=== PATIENT | female | born 1980 | race Caucasian/White ===

== ENCOUNTER → 2018-03-06 | Outpatient (CLI) | payer BC ==
--- NOTE | 2018-03-06 15:04 | CT ---
EXAM DESCRIPTION: Abdomen/Pelvis w/Contrast: Computed Tomography. CLINICAL HISTORY: RIGHT LOWER QUADRANT PAIN COMPARISON: Abdominal ultrasound July 10, 2011. TECHNIQUE: Spiral-axial scans at 5.0 mm intervals through the abdomen and pelvis, after nonionic IV contrast without oral contrast. Coronal and sagittal 2.0 mm reconstructions. Axial-spiral 5mm. No adverse reactions. Total Exam DLP: 875.8 mGy-cm. This exam was performed according to our departmental dose-optimization program which includes automated exposure control, adjustment of the mA and/or kV according to patient size and/or use of iterative reconstruction technique; to reduce radiation dose to as low as reasonably achievable (ALARA). FINDINGS: Terminal Ileum/Cecum: The appendix appears thickened and enhancing but no definite fatty stranding or fascial thickening abutting the appendix. Normal caliber of the terminal ileum and cecum. 1.5 x 1.5 cm fluid collection versus cyst in the right adnexa.. Colon: Unremarkable. No mucosal thickening. Pelvic Organs: Uterus is retroverted or retroflexed with endometrial fluid and probable cysts in the cervix. There is also thickening of endometrium in the fundus. Right ovary with suture material on its anterior superior aspect. Left ovary abutting the left lateral pelvic wall and the iliac vessels. Fluid collection anterior to the ovary as previously described. Urinary bladder wall thickening but no radiodense stones. Lung bases and pleura: Negative. Liver, Stomach, Spleen, Adrenal Glands: Right lobe of the liver measures 20.5 cm long axis. 8 mm low-density nodule in the medial segment of the left hepatic lobe. A second nodule in the superior right hepatic lobe also decreased enhancement. Stomach and other solid organs are unremarkable. Pancreas, Gallbladder, Ducts: Gallbladder visualized. Common bile duct not dilated. Pancreas negative. Kidneys and Ureters: 2 cm cyst upper pole left kidney. Kidneys otherwise unremarkable. Mesentery: No free air or free fluid in the abdomen. No fascial thickening.. Aorta: Normal caliber Small Bowel: Many segments containing gas but no distention. No obstruction. Spine and Bony Pelvis: Grade 2 anterolisthesis L5-S1 with severe spondylosis and bilateral foraminal stenosis. Bilateral L5 pars spondylolysis. Abdominal Wall/Back Soft Tissues: Diastases of fatty umbilicus but no bowel hernia. IMPRESSION: 1. Thickening of the appendix but no surrounding fatty stranding or fascial thickening. Minimal fluid in the right adnexa and in the cul-de-sac. Surgical sutures abutting the right ovary. Uterus is retroverted with thickened endometrium. Follicle in the left ovary otherwise unremarkable. Urinary bladder wall thickening without radiodense stones. This could represent cystitis. Consider follow-up nonemergent pelvic ultrasound. 2. Hepatomegaly with 2 nonenhancing noncystic nodules in the liver. Consider follow-up hepatic ultrasound. 3. Grade 2 anterolisthesis L5-S1 with bilateral foraminal stenosis and bilateral L5 pars interarticulares spondylolysis. Electronically signed by: Hugo Kuo MD 03/06/2018 3:02 PM CDT
== END ==
LOC: CT 13:46
PROVIDERS: ATTEND Nurse Practitioner Family
DX: R10.31 Right lower quadrant pain (principal); M43.06 Spondylolysis, lumbar region